=== PATIENT | male | born 1945 | race Two or more races ===

== ENCOUNTER 2017-07-21 06:53 | Day surgery (SDC) | payer MEDICARE, BC ==
[~2017-07-21] VITALS: Ht 167.6 cm; Wt 72.1 kg
[~2017-07-21 06:53] MED LIST: ASPI-535; DOXA4TAB2; ENAL5TAB89; METF500T3; SENN8.6T99; SIMV40TA3
[2017-07-21 07:39] VITALS: Ht 167.6 cm; Wt 72.1 kg
[2017-07-21] MEDS ORDERED: TAMSULOSIN (07:48)
[2017-07-21] MEDS ORDERED: VIT. D DAILY (07:48)
[2017-07-21] MEDS ORDERED: GLIM2TAB PO (07:48)
[2017-07-21 08:21] VITALS: BP 173/80; PULSE 63; RESP 16
[2017-07-21] MEDS ORDERED: PROPOFOL 20 ML ONE (08:22)
--- NOTE | 2017-07-21 09:05 | OPPN ---
Date/Time of Note Date/Time of Note DATE: 07/21/17 TIME: 09:04 Proc Note GI Procedure Date 07/21/17 Indication: screening/surveillance Pre-procedure Diagnosis Abdominal pain, screening colonoscopy Post-procedure Diagnosis 1. Polyp in the rectum successfully removed by cold snare technique 2. Mild diverticulosis 3. Internal hemorrhoids Procedure Performed: Colonoscopy Surgeon see signature line Tape Recorder Mechanic none Anesthesia Type: MAC Tourniquet Time none EBL none Transfusion required none Biopsy 1: None Polyp 1: Polyp removed from the rectum Grafts/Implants none Tubes/Drains none Complication(s) none Disposition: PACU Procedure Description Procedure dictated ANUP BLACK MD Jul 21, 2017 09:05
[2017-07-21 09:26] VITALS: BP 176/81; RESP 20
--- NOTE | 2017-07-21 10:00 | GILP ---
DATE OF PROCEDURE: 07/21/2017 PROCEDURE: Colonoscopy with polypectomy. INDICATION: A 72-year-old male undergoing this procedure for screening colonoscopy. The risks of t he procedure, related and unrelated complications, anesthetic risks, alternatives discussed. Inform ed consent was obtained. DESCRIPTION OF PROCEDURE: The patient was brought to the GI lab, sedated by the anesthesiologist an d after optimum sedation, scope was passed with much ease into rectum. There was some fresh blood s een in the rectum, scope was advanced all the way into the cecum. Appendiceal orifice identified. IC valve identified. While coming out, mucosa thoroughly inspected. The rest of the colon was norm al, a few small mouth diverticula seen. However, the preparation at some point in the colon was poo r with semi-formed stool could not be aspirated. This was a short segment in the transverse colon. While coming out the rest of the mucosa inspected. We went to and fro in the rectum and sigmoid co juan manuel and the descending colon to find out the source of blood in the rectum, but could not find it, s o definitely it was from the hemorrhoids. Retroversion done, internal hemorrhoids identified. The scope was straightened out, polyp identified in the rectum, 1 cm in diameter, successfully removed b y cold snare technique. IMPRESSION: 1. Rectal polyp successfully removed by cold snare technique. 2. Internal hemorrhoids. 3. Mild diverticulosis. 4. Clarity was good and cleanliness was good, inadequate in the short segment of the transverse col on. PLAN: Stay on a high-fiber diet. This finding cannot explain me his abdominal pain. Patient defin itely needs a CAT scan of the abdomen and pelvis. Dictated By: ANUP BARKER/ELIDIA Conf#: [id number] DID#: [id number] CC: FLORIDA TORRES M.D.;*EndCC*
== END 2017-07-21 10:25 | disposition home or self-care (01) ==
LOC: GIL 06:53
PROVIDERS: ATTEND Internal Medicine Gastroenterology
DX: Z12.11 Encounter for screening for malignant neoplasm of colon (principal); K62.1 Rectal polyp; K64.8 Other hemorrhoids; K57.90 Diverticulosis of intestine, part unspecified, without perforation or abscess without bleeding; I10 Essential (primary) hypertension; E11.9 Type 2 diabetes mellitus without complications; E78.5 Hyperlipidemia, unspecified
CPT/HCPCS: 82962; 88305